=== PATIENT | male | born 1945 ===

== ENCOUNTER 2022-04-04 05:58 | Day surgery (SDC) | payer OTHER ==
[~2022-04-04] VITALS: Ht 177.8 cm; Wt 158.9 kg
[2022-04-04] MEDS ORDERED: ACET500 PO (06:55)
[2022-04-04] MEDS ORDERED: Aspir 8181 MG PO (06:56)
[2022-04-04] MEDS ORDERED: ATEN50 PO (06:56)
[2022-04-04] MEDS ORDERED: CELE100 PO (06:57)
[2022-04-04] MEDS ORDERED: FLUT.05NI (06:59)
[2022-04-04] MEDS ORDERED: ZYRTEC10 M2 PO (06:59)
[2022-04-04] MEDS ORDERED: Prinivil10 MG PO (07:00)
[2022-04-04] MEDS ORDERED: METF500 PO (07:01)
[2022-04-04] MEDS ORDERED: SIMV40 PO (07:02)
[2022-04-04] MEDS ORDERED: OMEP20ER PO (07:02)
[2022-04-04] MEDS ORDERED: Hytrin2 MG PO (07:03)
[2022-04-04] MEDS ORDERED: TORSE20 PO (07:04)
--- NOTE | 2022-04-04 07:25 | NUR ---
Patient up to Ambulate independently. Gait steady. Lungs clear T/O to Auscultation. Patient confirms NPO status and agrees with scheduled surgery. Patient States Post-Procedure ride home has been arranged. Patient states colon prep results clear.
--- NOTE | 2022-04-04 08:08 | NUR ---
04/04/22 0808 Kelby Grover History, Chart, Medications and Allergies reviewed before start of procedure.MONITOR INTACT WITH CONTINUOUS PULSE OXIMETRY AND INTERMITTENT BP.3-LEAD EKG REVIEWED WITH PHYSICIAN PRIOR TO START OF PROCEDURE.O2 VIA POM INTACT THROUGHOUT SEDATION/PROCEDURE. See Anesthesia record.
--- NOTE | 2022-04-04 09:25 | NUR ---
Patient up to Ambulate independently. Gait steady. Discharge instructions reviewed with patient. Patient verbalizes understanding. Copy given to patient to take home. Patient States Post-Procedure ride home has been arranged. Patient reports completing Chlorhexadine shower X2 prior to admission to hospital. ALL BELONINGS RETURNED TO [facility].
== END 2022-04-04 23:29 | disposition home or self-care (01) ==
LOC: ORSCMMR 05:58 → ORD 07:30 → ORSCMMR 23:29
PROVIDERS: Surgery
PROC: 0DB68ZX Excision of Stomach, Via Natural or Artificial Opening Endoscopic, Diagnostic (ICD-10-PCS; principal; 2022-04-04 07:30)
PROC: 0DBN8ZX Excision of Sigmoid Colon, Via Natural or Artificial Opening Endoscopic, Diagnostic (ICD-10-PCS; principal; 2022-04-04 07:30)
DX: Z12.11 Encounter for screening for malignant neoplasm of colon (principal); K22.89 Other specified disease of esophagus; D12.5 Benign neoplasm of sigmoid colon; R93.89 Abnormal findings on diagnostic imaging of other specified body structures; K21.9 Gastro-esophageal reflux disease without esophagitis; Z86.010 Personal history of colon polyps; I10 Essential (primary) hypertension; I25.2 Old myocardial infarction; E11.9 Type 2 diabetes mellitus without complications; G47.33 Obstructive sleep apnea (adult) (pediatric); Z79.82 Long term (current) use of aspirin; Z79.84 Long term (current) use of oral hypoglycemic drugs; Z79.899 Other long term (current) drug therapy
CPT/HCPCS: 82947; 88305; 88342; J2405; J2704; J7120